=== PATIENT | male | born 1965 | race Caucasian/White ===

== ENCOUNTER 2018-06-23 11:52 | Emergency (ER) | payer OTHER ==
[2018-06-23 12:07] VITALS: BP 137/82; PULSE 72; TEMP 97.9; BMI 29.2
--- NOTE | 2018-06-23 12:22 | PDOC ---
History of Present Illness - General History Source: Patient, Family - History of Present Illness Initial Comments: 06/23/18 12:34 The patient is a 53 year old male, with a significant past medical history of chronic constipation, who presents to the emergency department with nausea and abdominal discomfort after eating 1/2 of a pineapple gelatin which he bought from a store this morning. He states he ate half of the gelatin before noticing it smelled foul. He reports also eating some bread. He states his stomach feels unsettled, like it is moving inside and making noise. He denies any sweats or vomiting. 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 He also reports diffuse itching to the trunk of his body, but denies any rashes. The patient denies chest pain, shortness of breath, headache and dizziness. The patient denies fever, chills, vomit, diarrhea. The patient denies dysuria, frequency, urgency and hematuria. Allergies: NKDA Past surgical history: none reported PCP - Dr. Young <Gracie Malhotra - Last Filed: 06/23/18 12:34> <Jim Steel - Last Filed: 06/23/18 13:58> - General Chief Complaint: Pain Stated Complaint: ABD PAIN Time Seen by Provider: 06/23/18 12:22 Past History <Gracie Malhotra - Last Filed: 06/23/18 12:34> - Past Medical History Anemia: No Asthma: No Cancer: No Cardiac Disorders: No CVA: No COPD: No CHF: No Dementia: No Diabetes: No GI Disorders: No Disorders: No HTN: No Hypercholesterolemia: No Liver Disease: No Seizures: No Thyroid Disease: No - Surgical History Abdominal Surgery: No Appendectomy: No Cardiac Surgery: No Cholecystectomy: No Lung Surgery: No Neurologic Surgery: No Orthopedic Surgery: No - Immunization History Immunization Up to Date: Yes - Suicide/Smoking/Psychosocial Hx Smoking Status: No Smoking History: Never smoked Have you smoked in the past 12 months: No Number of Cigarettes Smoked Daily: 0 Information on smoking cessation initiated: No Hx Alcohol Use: No Drug/Substance Use Hx: No Substance Use Type: None Hx Substance Use Treatment: No <Jim Steel - Last Filed: 06/23/18 13:58> - Past Medical History Allergies/Adverse Reactions: Allergies Allergy/AdvReac Type Severity Reaction Status Date / Time No Known Allergies Allergy Verified 06/23/18 12:07 Home Medications: Ambulatory Orders NK [No Known Home Medication] 06/23/18 Review of Systems - Review of Systems Able to Perform ROS?: Yes Comments:: 06/23/18 12:35 CONSTITUTIONAL: No reported: Fever, Chills, Diaphoresis, Generalized Weakness, Malaise, Loss of Appetite HEENT: No reported: Rhinorrhea, Nasal Congestion, Throat Pain, Throat Swelling, Difficulty Swallowing, Mouth Swelling, Ear Pain, Eye Pain, Visual Changes CARDIOVASCULAR: No reported: Chest Pain, Syncope, Palpitations, Irregular Heart Rate, Lightheadedness, Peripheral Edema RESPIRATORY: No reported: Cough, Shortness of Breath, SOB with Exertion, Orthopnea, Wheezing , Stridor, Hemoptysis GASTROINTESTINAL: (+) Abdominal pain, Nausea, No reported: Abdominal Distension, Vomiting, Diarrhea, Constipation, Melena, Hematochezia GENITOURINARY: No reported: Dysuria, Frequency, Urgency, Hesitancy, Flank Pain, Genital Pain MUSCULOSKELETAL: No reported: Myalgia, Arthralgia, Joint Swelling, Back pain, Neck Pain SKIN: No reported: Rash, Itching, Pallor HEMEATOLOGIC/IMMUNOLOGIC: No reported: Easy Bleeding, Easy Bruising, Lymphadenopathy, Frequent infections ENDOCRINE: No reported: Unexplained Weight Gain, Unexplained Weight Loss, Heat Intolerance , Cold Intolerance NEUROLOGIC: No reported: Headache, Focal Weakness, Paresthesias, Vertigo, Lightheadedness, Unsteady Gait, Seizure, Mental Status Changes, Incontinence PSYCHIATRIC: No reported: Anxiety, Depression " <Gracie Malhotra - Last Filed: 06/23/18 12:34> *Physical Exam - Vital Signs Last Vital Signs Temp Pulse Resp BP Pulse Ox 97.9 F 72 16 137/82 100 06/23/18 12:06 06/23/18 12:06 06/23/18 12:06 06/23/18 12:06/23/18 12:06 <Gracie Malhotra - Last Filed: 06/23/18 12:34> - Vital Signs Last Vital Signs Temp Pulse Resp BP Pulse Ox 97.9 F 72 16 137/82 100 06/23/18 12:06/23/18 12:06/23/18 12:06 06/23/18 12:06 06/23/18 12:06 - Physical Exam Comments: 06/23/18 12:30 GENERAL: The patient is awake, alert, and fully oriented, Nontoxic - in no acute distress. HEAD: Normocephalic, atraumatic. EYES: extraocular movements intact, sclera anicteric, conjunctiva clear. ENT: Normal voice, Moist mucous membranes. NECK: Normal range of motion, supple LUNGS: Breath sounds equal, clear to auscultation bilaterally. No wheezes, no rhonchi, no rales. HEART: Regular rate and rhythm, normal S1 and S2 without murmur, rub or gallop. ABDOMEN: Soft, nontender, normoactive bowel sounds. No guarding, no rebound. No CVA tenderness EXTREMITIES: Normal range of motion, no edema. NEUROLOGICAL: No facial assymetry, Normal speech, normal gait, movign all 4 extremities spontaneously and symmetrically PSYCH: Normal mood, normal affect. SKIN: Warm, Dry, normal turgor, <Jim Steel - Last Filed: 06/23/18 13:58> Moderate Sedation - Procedure Monitoring Vital Signs: Procedure Monitoring Vital Signs Temperature 97.9 F 06/23/18 12:06 Pulse Rate 72 06/23/18 12:06 Respiratory Rate 16 06/23/18 12:06 Blood Pressure 137/82 06/23/18 12:06 O2 Sat by Pulse Oximetry (%) 100 06/23/18 12:06 <Gracie Malhotra - Last Filed: 06/23/18 12:34> - Procedure Monitoring Vital Signs: Procedure Monitoring Vital Signs Temperature 97.9 F 06/23/18 12:06 Pulse Rate 72 06/23/18 12:06 Respiratory Rate 16 06/23/18 12:06 Blood Pressure 137/82 06/23/18 12:06 O2 Sat by Pulse Oximetry (%) 100 06/23/18 12:06 <Jim Steel - Last Filed: 06/23/18 13:58> Heart Score/ECG Review - ECG Impressions Comment:: 06/23/18 13:57 Twelve-lead EKG was performed and reviewed by me. There is normal sinus rhythm with a normal rate. rate of [address] changes suggestive of acute infarction <Jim Steel - Last Filed: 06/23/18 13:58> Medical Decision Making - Medical Decision Making 06/23/18 12:32 53y M hx of constipation presents with feeling nauseus, itchy and unsettled stomach after eating some jello this morning. pt denies any fever/chills, abd pain, cp, sob, palptiations, diaphoresis, leg swelling abd soft nontender pt in no distress possible early enteritis - will give pt some zofran ekg to screen for acs will reassess 06/23/18 13:16 The patient is feeling better his nausea has resolved, notes he still has occasional settled stomach but no pain. Abdomen was reassessed and is soft nontender anticipate discharge with PMD follow-up tomorrow Return precautions were discussed <Jim Steel - Last Filed: 06/23/18 13:58> *DC/Admit/Observation/Transfer - Attestations Scribe Attestion: 06/23/18 12:35 Documentation prepared by Gracie Malhotra, acting as medical education manager for Jim Steel MD <Gracie Malhotra - Last Filed: 06/23/18 12:34> - Discharge Dispostion Decision to Admit order: No <Jim Steel - Last Filed: 06/23/18 13:58> Diagnosis at time of Disposition: Nausea - Discharge Dispostion Disposition: HOME Condition at time of disposition: Improved - Referrals Referrals: Patti Riojas [Non Staff, Medical] - - Patient Instructions Printed Discharge Instructions: DI for Nausea -- Adult Additional Instructions: I suspect your sypmtoms may be due to the food you ate. If you have any fevers, persistent abdominal pain, or unable to tolerate any oral intake or have any other concerns please come back to the emergency department for further evaluation. See your primary care doctor tomorrow for further evaluation Print Language: FRENCH
[2018-06-23] MEDS ORDERED: ONDANSETRON 4 MG TABLET PO ONE (12:29)
[2018-06-23] MEDS ORDERED: ONDANSETRON *ODT* 4 MG TABLET ONE (12:38)
--- NOTE | 2018-06-23 17:15 | EKG ---
Test Reason : Blood Pressure : / mmHG Vent. Rate : 072 BPM Atrial Rate : 072 BPM P-R Int : 162 ms QRS Dur : 106 ms QT Int : 404 ms P-R-T Axes : 041 -03 013 degrees QTc Int : 442 ms NORMAL SINUS RHYTHM POSSIBLE INFERIOR INFARCT , AGE UNDETERMINED POSSIBLE ANTERIOR INFARCT , AGE UNDETERMINED ABNORMAL ECG WHEN COMPARED WITH ECG OF 09-JUN-2012 21:13, T WAVE INVERSION NOW EVIDENT IN LATERAL LEADS Confirmed by ANIYAH AVERY, JAUN ([id number]) on 06/23/2018 5:15:01 PM Referred By: Confirmed By:JAUN DILL MD
== END 2018-06-23 14:00 | disposition home or self-care (01) ==
LOC: JER 11:52
DX: R11.0 Nausea (principal)
CPT/HCPCS: 93005; 93010; 99282-25

== ENCOUNTER 2020-06-12 10:40 | Emergency (ER) | payer OTHER ==
[2020-06-12 11:24] VITALS: BP 141/91; PULSE 68; TEMP 98.7; BMI 28.9
[2020-06-12] MEDS ORDERED: SODIUM CHLORIDE 1,000 ML IV SCH (12:15)
[2020-06-12] MEDS ORDERED: METOCLOPRAMIDE HCL INJECTION 10 MG/2 ML VIAL IVPUSH ONE (12:36)
[2020-06-12] MEDS ORDERED: MECLIZINE HCL 25 MG TABLET (FP) PO ONE (12:36)
[2020-06-12 12:42] LABS: BASO % 0.8 % (0-2.0); EOS % 0.1 % (0-4.5); HEMATOCRIT 50.8 % (35.4-49); HEMOGLOBIN 17.1 GM/dL (11.7-16.9); LYMPH % 6.6 % (8-40); MCH 30.4 pg (25.7-33.7); MCHC 33.7 g/dl (32.0-35.9); MEAN CELL VOLUME 90.1 fl (80-96); MEAN PLT VOLUME 10.5 fl (7.5-11.1); MONO % 2.5 % (3.8-10.2); PLATELET COUNT 177 K/MM3 (134-434); RBC 5.64 M/mm3 (4.00-5.60); RDW 12.8 % (11.9-15.9); WHITE BLOOD COUNT 11.2 K/mm3 (4.0-10.0)
[2020-06-12] MEDS ORDERED: MECLIZINE HCL 25 MG TABLET (FP) ONE (12:42)
[2020-06-12] MEDS ORDERED: METOCLOPRAMIDE HCL INJECTION 10 MG/2 ML VIAL ONE (12:42)
[2020-06-12 12:52] LABS: INR 1.09 (0.83-1.09); PROTHROMBIN TIME (PATIENT) 13.2 SEC (9.7-13.0); URINE APPEARANCE CLEAR; URINE BILIRUBIN NEGATIVE (NEGATIVE); URINE COLOR YELLOW; URINE GLUCOSE (UA) NEGATIVE (NEGATIVE); URINE KETONE NEGATIVE (NEGATIVE); URINE LEUK ESTERASE NEGATIVE (NEGATIVE); URINE NITRITE NEGATIVE (NEGATIVE); URINE PROTEIN NEGATIVE (NEGATIVE)
[2020-06-12 12:53] LABS: CHLORIDE 107 mmol/L (98-107); POTASSIUM 4.4 mmol/L (3.5-5.1); SODIUM 140 mmol/L (136-145)
[2020-06-12 12:54] LABS: ACTIVATED PTT 27.4 SECONDS (25.2-36.5)
[2020-06-12 13:00] LABS: ALBUMIN 4.1 g/dl (3.4-5.0); CALCIUM 9.2 mg/dL (8.5-10.1)
[2020-06-12 13:01] LABS: ANION GAP 7 MMOL/L (8-16); BLOOD UREA NITROGEN 12.2 mg/dL (7-18); CO2 25 mmol/L (21-32); GLUCOSE,RANDOM 108 mg/dL (74-106)
[2020-06-12 13:03] LABS: BILIRUBIN,TOTAL 0.6 mg/dL (0.2-1); CHOLESTEROL 166 mg/dL (50-200); SGPT/ALT 77 U/L (13-61)
[2020-06-12 13:04] LABS: ALK PHOS 87 U/L (45-117); CREATININE 0.9 mg/dL (0.55-1.3); SGOT/AST 38 U/L (15-37); TRIGLYCERIDES 96 mg/dL (0-150)
[2020-06-12 13:05] LABS: HDL CHOLESTEROL 36 mg/dL (40-60); LDL CHOLESTEROL (ONLY SJRH) 122 mg/dL (5-100); TOT PROT 7.4 g/dl (6.4-8.2)
[2020-06-12] MEDS ORDERED: diazePAM 5 MG TABLET PO ONE (13:20)
[2020-06-12] MEDS ORDERED: DEXAMETHASONE SOD PHOSPHATE 10 MG/1 ML VIAL IVPUSH ONE (13:20)
== END 2020-06-12 15:00 | disposition home or self-care (01) ==
LOC: JER 10:40
PROC: 3E033GC Introduction of Other Therapeutic Substance into Peripheral Vein, Percutaneous Approach (ICD-10-PCS; principal; 2020-06-12)
PROC: 3E033GC Introduction of Other Therapeutic Substance into Peripheral Vein, Percutaneous Approach (ICD-10-PCS; 2020-06-12)
DX: H81.4 Vertigo of central origin (principal)
CPT/HCPCS: 36415; 70450-TC; 80053; 80061; 81003; 82550; 82553; 83721; 84484; 85025; 85610; 85730; 86850; 86900; 86901; 93005; 93010; 99285-25